=== PATIENT | female | born 1980 | race Caucasian/White ===

== ENCOUNTER 2016-11-09 09:29 | Emergency (ER) | payer SELFPAY ==
[~2016-11-09] VITALS: Wt 71.0 kg
[2016-11-09] MEDS ORDERED: PHEN-612 PO (10:06)
[2016-11-09] MEDS ORDERED: NITR-58 PO (10:06)
--- NOTE | 2016-11-09 10:10 | ERD ---
ER Documentation Chief Complaint Date/Time DATE: 11/09/16 TIME: 10:08 Chief Complaint DYSURIA X 2 DAYS HPI This is a 36-year-old female presenting complaining of painful urination, urgency frequency for the past 2 days. Patient admits to having suprapubic tenderness, rating it mild to moderate. Denies any fevers, flank pain. Denies hematuria. States her last menstrual period was about 3-4 weeks ago ROS All systems reviewed and are negative except as per history of present illness. Medications Home Meds Active Scripts Phenazopyridine Hcl* (Phenazopyridine Hcl*) 100 Mg Tablet, 100 MG PO TID, #10 TAB Prov:HIGINIO BURCIAGA-Kaitlyn 11/09/16 Nitrofurantoin Monohyd Macrocr* (Macrobid*) 100 Mg Capsr, 100 MG PO BID for 7 Days, CAP Prov:HIGINIO BURCIAGA PA-C 11/09/16 Allergies Allergies: Coded Allergies: No Known Allergy (Unverified , 12/24/12) PMhx/Soc Hx Miscellaneous Medical Probl: Yes (DM) Hx Alcohol Use: Yes ("I have been drinking all day") Hx Substance Use: No Hx Tobacco Use: No Physical Exam Vitals Vital Signs Date Time Temp Pulse Resp B/P Pulse Ox O2 Delivery O2 Flow Rate FiO2 11/09/16 09:31 98.0 78 18 136/78 99 Physical Exam General: well-developed/well-nourished, in no apparent distress, non-toxic appearing HENT: NC/AT Eyes: Conjunctiva normal Neck: Supple Pulm: CTA bilaterally, normal breathing CV: Normal S1S2 GI: Soft, non-distended, normal bowel sounds, TTP on suprapubic region Back: No midline tenderness, no masses, No CVAT Ext: No clubbing, cyanosis, or edema Neuro: Alert and orientated Skin: intact, normal turgor Psych: Normal mood and mentation Procedures/MDM MDM: 36-year-old female presents to the ER with urinary tract infection. Low suspicion for pyelonephritis, nephrolithiasis, ovarian torsion due to physical examination. Urinalysis was positive for infection. Urine test is negative. She is hemodynamically stable for discharge. Prescriptions Macrobid and Pyridium have been given to take as directed. Strict precautions were given to return to the ER if not improving as expected or for any worsening signs and symptoms Departure Diagnosis: Primary Impression: UTI (urinary tract infection) Condition: Stable Patient Instructions: Understanding Urinary Tract Infections (UTIs) Additional Instructions: Visite a hurley sarath golden para un EXAMEN.Regrese a estas instalaciones si no se mejora igor esperbamos o igor le dijimos. [place] toda la medicina [place] y igor se le indic. Regrese a estas instalaciones si no se mejora igor esperbamos o igor le dijimos. HIGINIO BURCIAGA PA-C Nov 09, 2016 10:10
[2016-11-09 10:29] LABS: URINE BLOOD (Dip) POC Trace-lysed (NEGATIVE)
== END 2016-11-09 10:41 | disposition home or self-care (01) ==
LOC: FTE 09:29
DX: N39.0 Urinary tract infection, site not specified (principal); E11.9 Type 2 diabetes mellitus without complications
CPT/HCPCS: 81003; 99283